=== PATIENT | female | born 1960 | race Caucasian/White ===

== ENCOUNTER 2017-02-09 06:43 | Day surgery (SDC) | payer OTHER ==
[2017-02-09 07:07] VITALS: BMI 47.9
[2017-02-09] MEDS ORDERED: Lactated Ringer's 1,000 ML IV ONE (09:10)
[2017-02-09] MEDS ORDERED: Propofol 10 mg/ml Inj (20 ML) ONE ×3 (09:14→09:38)
[2017-02-09] MEDS ORDERED: Lidocaine Hydrochloride 5 ML INJ ONE (09:14)
[2017-02-09 10:15] VITALS: TEMP 97.1
[2017-02-09 10:18] VITALS: O2SAT 100
[2017-02-09 12:07] VITALS: BP 102/50; PULSE 60; RESP 21
== END 2017-02-09 11:15 | disposition home or self-care (01) ==
LOC: C.ENDO 06:43
PROVIDERS: ATTEND Internal Medicine
DX: K57.90 Diverticulosis of intestine, part unspecified, without perforation or abscess without bleeding (principal); Z86.010 Personal history of colon polyps; Z90.3 Acquired absence of stomach [part of]; K64.8 Other hemorrhoids; K20.9 Esophagitis, unspecified; K44.9 Diaphragmatic hernia without obstruction or gangrene; K29.60 Other gastritis without bleeding
CPT/HCPCS: 43239; 45378; 88305; 88342; J2704; J7120